=== PATIENT | female | born 1945 | race Caucasian/White ===

== ENCOUNTER 2021-06-20 12:56 | Inpatient (IN) ==
[2021-06-20] MEDS ORDERED: Ondansetron 4 MG/2 ML VIAL IVP ONE (14:01)
[2021-06-20] MEDS ORDERED: 0.9 % Sodium Chloride 500 ML IVC ONE (14:01)
[2021-06-20] MEDS ORDERED: Aspirin 81 MG TAB.CHEW PO ONE (14:01)
[2021-06-20 14:33] LABS: Basophils % 0.3 %; Eosinophils % 0.3 %; Hemoglobin 13.6 g/dL (11.5-15.4); Immature Granulocytes % 0.2 % (0-4); Lymphocytes % 11.5 %; Mean Corpuscular HGB Conc 33.2 g/dL (31.6-35.5); Mean Corpuscular Hemoglobin 30.2 pg (28.0-33.3); Mean Corpuscular Volume 91.1 fL (83.0-100.0); Mean Platelet Volume 9.6 fL (9.4-12.4); Monocytes # 0.6 K/mcL (0.0-1.3); Monocytes % 6.7 %; Platelet Count 314 K/mcL (140-400); Red Cell Distribution Width 12.9 % (11.5-14.5); White Blood Count 8.7 K/mcL (4.3-11.1)
[2021-06-20] MEDS: Nitroglycerin 0.4 MG TAB.SUBL SL SCH ×3 (14:33→14:41)
[2021-06-20] MEDS ORDERED: Aspirin 81 MG TAB.CHEW ONE (14:34)
[2021-06-20 14:55] LABS: INR 1.1; Prothrombin Time 12.4 Seconds (9.4-12.1)
[2021-06-20 14:58] LABS: Activated Partial Thrombo Time 33.4 Seconds (26.0-36.0)
[2021-06-20 14:59] LABS: Bilirubin,Urine Negative (Negative); Blood,Urine Moderate (Negative); Clarity,Urine Clear (Clear); Color,Urine Light-Yellow (Yellow); Glucose,Urine (UA) Normal (Normal); Ketones,Urine Negative (Negative); Leukocyte Esterase,Urine Negative (Negative); Nitrite,Urine Negative (Negative); Protein,Urine Negative (Neg-Trace); RBC,Urine 50-100 per hpf (0-3); Specific Gravity,Urine 1.009 (1.010-1.025); Squamous Epithelial Cell,Urine Few per hpf (None-Few); Urobilinogen,Urine Normal (Normal); WBC,Urine 0-3 per hpf (0-3)
[2021-06-20 15:52] LABS: Troponin I < 0.03 ng/mL (< 0.04)
[2021-06-20 17:19] LABS: Alanine Aminotransferase 644 Units/L (7-52); Albumin 3.8 g/dL (3.5-5.7); Albumin/Globulin Ratio 1.2 (1.1-2.2); Alkaline Phosphatase 214 Units/L (34-104); Aspartate Amino Transferase 477 Units/L (13-39); BUN/Creatinine Ratio 12 (6-26); Bilirubin,Direct 0.4 mg/dL (0.0-0.2); Bilirubin,Total 1.4 mg/dL (0.3-1.0); Blood Urea Nitrogen 11 mg/dL (8-23); Calcium 9.2 mg/dL (8.6-10.3); Carbon Dioxide 27 mEq/L (23-29); Chloride 103 mEq/L (98-107); Globulin 3.1 g/dL (2.4-3.5); Glucose 106 mg/dL (70-105); Lipase > 1800 Units/L (11-82); Osmolality,Calculated 288 (280-300); Potassium 3.5 mEq/L (3.5-5.1); Sodium 139 mEq/L (136-145); Total Protein 6.9 g/dL (6.4-8.9); eGFR For African Americans > 60 (> 60); eGFR For Non-African Americans 60 (> 60)
[2021-06-20] MEDS ORDERED: Ondansetron 4 MG/2 ML VIAL IVP PRN (19:41)
[2021-06-20] MEDS ORDERED: Acetaminophen 325 MG TABLET PO PRN (19:41)
[2021-06-20] MEDS ORDERED: Naloxone 0.4 MG/ML INJ IVP PRN (19:41)
[2021-06-20] MEDS: Ringers Solution, Lactated 1,000 ML IVC SCH (20:13)
[2021-06-20] MEDS: Pantoprazole 40 MG VIAL IVP SCH (22:01)
[2021-06-21 03:05] LABS: Basophils % 0.3 %; Eosinophils # 0.3 K/mcL (0.0-0.6); Eosinophils % 3.5 %; Hematocrit 37.1 % (35.3-44.9); Hemoglobin 12.2 g/dL (11.5-15.4); Immature Granulocytes % 0.4 % (0-4); Lymphocytes # 1.5 K/mcL (0.6-4.6); Lymphocytes % 20.6 %; Mean Corpuscular HGB Conc 32.9 g/dL (31.6-35.5); Mean Corpuscular Hemoglobin 30.5 pg (28.0-33.3); Mean Corpuscular Volume 92.8 fL (83.0-100.0); Mean Platelet Volume 9.7 fL (9.4-12.4); Monocytes # 0.6 K/mcL (0.0-1.3); Monocytes % 7.6 %; Neutrophils # 4.9 K/mcL (1.6-8.9); Platelet Count 251 K/mcL (140-400); Red Cell Distribution Width 13.1 % (11.5-14.5); Segmented Neutrophils % 67.6 %; White Blood Count 7.2 K/mcL (4.3-11.1)
[2021-06-21] MEDS: Ringers Solution, Lactated 1,000 ML IVC SCH (03:11)
[2021-06-21 03:12] LABS: INR 1.2; Prothrombin Time 13.3 Seconds (9.4-12.1)
[2021-06-21 03:20] LABS: Albumin 3.2 g/dL (3.5-5.7); Albumin/Globulin Ratio 1.2 (1.1-2.2); Bilirubin,Direct 0.2 mg/dL (0.0-0.2); Bilirubin,Indirect 0.9 mg/dL (0.0-1.0); Bilirubin,Total 1.1 mg/dL (0.3-1.0); Globulin 2.6 g/dL (2.4-3.5); Total Protein 5.8 g/dL (6.4-8.9)
[2021-06-21 03:40] LABS: Chol/HDL Ratio 2.8 (0-4.9); Magnesium 1.9 mg/dL (1.6-2.6); Thyroid Stimulating Hormone 0.644 mcIU/mL (0.340-5.600)
[2021-06-21 03:51] LABS: Hepatitis B Surface Antigen Nonreactive (Nonreactive)
[2021-06-21 04:19] LABS: Hepatitis C Virus Antibody Nonreactive (Nonreactive)
[2021-06-21 04:20] LABS: Hepatitis B Core IgM Nonreactive (Nonreactive)
[2021-06-21 04:21] LABS: Hepatitis A Antibody IgM Nonreactive (Nonreactive)
[2021-06-21] MEDS: Pantoprazole 40 MG VIAL IVP SCH (05:18)
[2021-06-21] MEDS ORDERED: Acetaminophen IV 1,000 MG/100 ML BAG IVPB ONE (23:49)
[2021-06-21] MEDS ORDERED: *HR* Metoprolol 5 MG/5 ML VIAL IVP ONE (23:49)
[2021-06-22] MEDS: Pantoprazole 40 MG VIAL IVP SCH (05:30)
[2021-06-22 05:51] LABS: Basophils % 0.3 %; Eosinophils # 0.1 K/mcL (0.0-0.6); Hematocrit 38.3 % (35.3-44.9); Hemoglobin 12.8 g/dL (11.5-15.4); Immature Granulocytes % 0.3 % (0-4); Lymphocytes # 1.5 K/mcL (0.6-4.6); Lymphocytes % 12.8 %; Mean Corpuscular HGB Conc 33.4 g/dL (31.6-35.5); Mean Corpuscular Hemoglobin 30.7 pg (28.0-33.3); Mean Corpuscular Volume 91.8 fL (83.0-100.0); Mean Platelet Volume 9.5 fL (9.4-12.4); Monocytes # 0.9 K/mcL (0.0-1.3); Monocytes % 7.8 %; Platelet Count 279 K/mcL (140-400); Red Blood Count 4.17 M/mcL (3.82-4.97); Red Cell Distribution Width 12.9 % (11.5-14.5); Segmented Neutrophils % 77.8 %; White Blood Count 11.5 K/mcL (4.3-11.1)
[2021-06-22 07:48] LABS: Alanine Aminotransferase 280 Units/L (7-52); Albumin 3.3 g/dL (3.5-5.7); Albumin/Globulin Ratio 1.1 (1.1-2.2); Alkaline Phosphatase 153 Units/L (34-104); Aspartate Amino Transferase 75 Units/L (13-39); BUN/Creatinine Ratio 16 (6-26); Bilirubin,Total 1.1 mg/dL (0.3-1.0); Blood Urea Nitrogen 15 mg/dL (8-23); Calcium 8.7 mg/dL (8.6-10.3); Carbon Dioxide 28 mEq/L (23-29); Chloride 100 mEq/L (98-107); Glucose 90 mg/dL (70-105); Lipase 44 Units/L (11-82); Osmolality,Calculated 282 (280-300); Potassium 3.4 mEq/L (3.5-5.1); Sodium 136 mEq/L (136-145); Total Protein 6.3 g/dL (6.4-8.9); eGFR For African Americans > 60 (> 60); eGFR For Non-African Americans 58 (> 60)
[2021-06-22] MEDS ORDERED: *HR* HYDROmorphone PF 0.5 MG/0.5 ML SYRINGE IVP PRN ×2 (08:09→11:29)
[2021-06-22] MEDS ORDERED: *HR* FentaNYL (PF) 100 MCG/2 ML VIAL IVP PRN ×2 (08:09→11:29)
[2021-06-22] MEDS ORDERED: Ondansetron 4 MG/2 ML VIAL IVP PRN ×3 (08:09→11:29)
[2021-06-22] MEDS ORDERED: Isovue-300 50ML VIAL ONE ×2 (08:21→08:57)
[2021-06-22] MEDS ORDERED: *HR* Succinylcholine 200 MG/10 ML VIAL IVP ONE (08:24)
[2021-06-22] MEDS ORDERED: Lidocaine -MPF 2% 2 ML VIAL ONE (08:24)
[2021-06-22] MEDS ORDERED: Ondansetron 4 MG/2 ML VIAL ONE (08:24)
[2021-06-22] MEDS ORDERED: *HR* FentaNYL (PF) 100 MCG/2 ML VIAL ONE (08:24)
[2021-06-22] MEDS ORDERED: *HR* Rocuronium Bromide 50 MG/5 ML VIAL ONE (08:24)
[2021-06-22] MEDS ORDERED: *HR* Propofol 200 MG/20 ML VIAL IVP ONE (08:24)
[2021-06-22] MEDS ORDERED: Lidocaine -MPF 4% 5 ML AMPUL ONE (08:24)
[2021-06-22] MEDS ORDERED: CefOXitin 2,000 MG VIAL ONE (08:57)
[2021-06-22] MEDS ORDERED: cefOXitin 1,000 MG, 0.9 % Sodium Chloride 1,000 ML IR ONE (09:00)
[2021-06-22] MEDS ORDERED: EPHEDrine 50 MG/ML VIAL ONE (09:19)
[2021-06-22] MEDS ORDERED: Acetaminophen IV 1,000 MG/100 ML BAG IVPB ONE (09:41)
[2021-06-22] MEDS ORDERED: CefOXitin 1,000 MG VIAL ONE (09:44)
[2021-06-22] MEDS ORDERED: *HR* Midazolam HCl 2 MG/2 ML VIAL ONE (09:48)
[2021-06-22] MEDS ORDERED: Sugammadex Sodium 200 MG/2 ML VIAL IV ONE (10:18)
[2021-06-22] MEDS ORDERED: *HR* HYDROMORPHONE 2 MG/ML VIAL ONE (10:27)
[2021-06-22] MEDS ORDERED: Naloxone 0.4 MG/ML INJ IVP PRN (11:29)
[2021-06-22] MEDS ORDERED: Potassium Chloride 20 MEQ, Lidocaine 1% 2 ML in 0.9 % Sodium Chloride 250 ML IVPB ONE (16:49)
[2021-06-22] MEDS: Morphine Sulfate 2 MG/ML SYRINGE IVP PRN (23:50)
[2021-06-23] MEDS: Morphine Sulfate 2 MG/ML SYRINGE IVP PRN (02:00)
[2021-06-23] MEDS: Pantoprazole 40 MG VIAL IVP SCH (05:50)
[2021-06-23 06:57] LABS: Basophils % 0.3 %; Eosinophils % 0.3 %; Hematocrit 38.6 % (35.3-44.9); Hemoglobin 12.7 g/dL (11.5-15.4); Immature Granulocytes % 0.5 % (0-4); Lymphocytes # 1.1 K/mcL (0.6-4.6); Lymphocytes % 9.2 %; Mean Corpuscular HGB Conc 32.9 g/dL (31.6-35.5); Mean Corpuscular Hemoglobin 30.4 pg (28.0-33.3); Mean Corpuscular Volume 92.3 fL (83.0-100.0); Mean Platelet Volume 9.8 fL (9.4-12.4); Monocytes # 0.8 K/mcL (0.0-1.3); Monocytes % 7.3 %; Neutrophils # 9.4 K/mcL (1.6-8.9); Platelet Count 284 K/mcL (140-400); Red Blood Count 4.18 M/mcL (3.82-4.97); Red Cell Distribution Width 13.2 % (11.5-14.5); Segmented Neutrophils % 82.4 %; White Blood Count 11.4 K/mcL (4.3-11.1)
[2021-06-23 07:17] LABS: Alanine Aminotransferase 200 Units/L (7-52); Albumin 3.2 g/dL (3.5-5.7); Alkaline Phosphatase 126 Units/L (34-104); Aspartate Amino Transferase 53 Units/L (13-39); BUN/Creatinine Ratio 20 (6-26); Bilirubin,Total 0.7 mg/dL (0.3-1.0); Blood Urea Nitrogen 16 mg/dL (8-23); Calcium 8.5 mg/dL (8.6-10.3); Carbon Dioxide 27 mEq/L (23-29); Chloride 100 mEq/L (98-107); Globulin 3.1 g/dL (2.4-3.5); Glucose 100 mg/dL (70-105); Osmolality,Calculated 279 (280-300); Potassium 3.7 mEq/L (3.5-5.1); Sodium 134 mEq/L (136-145); Total Protein 6.3 g/dL (6.4-8.9); eGFR For African Americans > 60 (> 60); eGFR For Non-African Americans > 60 (> 60)
[2021-06-23] MEDS: Piperacillin/Tazobactam 3.375 GM in 0.9 % Sodium Chloride Mini Bag 100 ML IVPB SCH ×2 (13:09→20:37)
[2021-06-23] MEDS: Acetaminophen 325 MG TABLET PO PRN (20:34)
[2021-06-24] MEDS: Piperacillin/Tazobactam 3.375 GM in 0.9 % Sodium Chloride Mini Bag 100 ML IVPB SCH (04:30)
[2021-06-24] MEDS: Pantoprazole 40 MG VIAL IVP SCH (06:44)
[2021-06-24 06:56] VITALS: BP 132/75; PULSE 70; TEMP 98.5; O2SAT 93
[2021-06-24 07:17] LABS: Basophils % 0.4 %; Eosinophils # 0.3 K/mcL (0.0-0.6); Eosinophils % 3.3 %; Hemoglobin 12.9 g/dL (11.5-15.4); Immature Granulocytes % 0.6 % (0-4); Lymphocytes # 1.6 K/mcL (0.6-4.6); Mean Corpuscular HGB Conc 32.3 g/dL (31.6-35.5); Mean Corpuscular Hemoglobin 30.1 pg (28.0-33.3); Mean Corpuscular Volume 93.2 fL (83.0-100.0); Mean Platelet Volume 9.4 fL (9.4-12.4); Monocytes # 0.7 K/mcL (0.0-1.3); Monocytes % 7.6 %; Neutrophils # 6.2 K/mcL (1.6-8.9); Platelet Count 309 K/mcL (140-400); Red Blood Count 4.29 M/mcL (3.82-4.97); Red Cell Distribution Width 13.4 % (11.5-14.5); Segmented Neutrophils % 70.1 %; White Blood Count 8.9 K/mcL (4.3-11.1)
[2021-06-24 07:41] LABS: Alanine Aminotransferase 150 Units/L (7-52); Albumin 3.4 g/dL (3.5-5.7); Alkaline Phosphatase 116 Units/L (34-104); Aspartate Amino Transferase 32 Units/L (13-39); BUN/Creatinine Ratio 15 (6-26); Bilirubin,Total 0.7 mg/dL (0.3-1.0); Blood Urea Nitrogen 15 mg/dL (8-23); Calcium 8.8 mg/dL (8.6-10.3); Carbon Dioxide 29 mEq/L (23-29); Chloride 101 mEq/L (98-107); Globulin 3.4 g/dL (2.4-3.5); Glucose 101 mg/dL (70-105); Osmolality,Calculated 283 (280-300); Potassium 3.7 mEq/L (3.5-5.1); Sodium 136 mEq/L (136-145); Total Protein 6.8 g/dL (6.4-8.9); eGFR For African Americans > 60 (> 60); eGFR For Non-African Americans 55 (> 60)
[2021-06-24] MEDS: Acetaminophen 325 MG TABLET PO PRN (12:52)
== END 2021-06-24 14:10 | disposition home or self-care (01) | DRG 415 ==
LOC: EMEROOARM 12:56 → 3NENU 12:56 → SUATTDRO 21:12
PROVIDERS: ADMIT Student in an Organized Health Care Education/Training Program; ATTEND General Practice